=== PATIENT | male | born 1990 | race Caucasian/White ===

== ENCOUNTER 2018-12-22 15:37 | Emergency (ER) | payer OTHER ==
[~2018-12-22] VITALS: Ht 175.3 cm; Wt 73.5 kg
[2018-12-22] MEDS ORDERED: ERY-TAB500 MG PO (15:48)
[2018-12-22] MEDS ORDERED: IBUPROFEN 800800 MG PO (15:48)
[2018-12-22 16:05] VITALS: BP 123/84
== END 2018-12-22 16:05 ==
LOC: M.ERS 15:37
DX: K02.9 Dental caries, unspecified (principal); Z88.1 Allergy status to other antibiotic agents; Z88.0 Allergy status to penicillin